=== PATIENT | male | born 1980 ===

== ENCOUNTER 2024-04-30 12:54 | Inpatient (IN) | payer MEDICAID, OTHER ==
[2024-04-30] MEDS ORDERED: ACETAMINOPHEN TAB 325 MG TAB PO PRN (13:32)
[2024-04-30] MEDS ORDERED: LORazepam 2 MG/ML INJ IM PRN (13:32)
[2024-04-30] MEDS ORDERED: MAG HYDROX/AL HYDROX/SIMETH 355 ML BOTTLE PO PRN (13:32)
[2024-04-30] MEDS ORDERED: HALOPERIDOL LACTATE 5 MG/ML 1 ML VIAL IM PRN (13:32)
[2024-04-30] MEDS ORDERED: haloperidoL 5 MG TAB PO PRN (13:32)
[2024-04-30] MEDS ORDERED: MAGNESIUM HYDROXIDE 2,400 MG/30 ML CUP PO PRN (13:32)
[2024-04-30] MEDS ORDERED: DEXTROSE 50% SYRINGE 50 ML IVP PRN ×2 (16:59)
--- NOTE | 2024-04-30 17:03 | P.MDCNMH ---
<Rios Fuentes - Last Filed: 04/30/24 18:25> History of Present Illness H&P Date: 04/30/24 History of Presenting Illness: Patient is a 43-year-old male with a past medical history of insulin-dependent d iabetes mellitus, CKD, testicular cancer, erectile dysfunction, and polysubstance abuse with methamphetamines, amphetamines, marijuana and cocaine. He is currently admitted to inpatient mental health unit after being transferred from [facility] where patient presented with suicidal and homicidal ideations. Prior to arrival to their facility patient reportedly made suicidal and homicidal statements to his PO police were dispatched to his home. Patient reports his dog bit officer and when he pulled the dog off of the officer the dog began repeatedly biting him resulting in multiple puncture wounds to bilateral hands, arms, and right leg. Patient was then transferred to [facility] where he was petitioned for suicidal and homicidal ideations and underwent treatment for his bite wounds. Patient received tetanus vaccination and was started on oral antibiotics with Augmentin. He was transferred to [facility] for inpatient psychiatric treatment. We were consulted for medical management and evaluation of bite wounds. Patient seen and fully evaluated in mental health unit. Patient sitting in chair, currently denies having any pain or complaints. Patient with numerous puncture wounds to bilateral arms, hands, and right lower extremity with b ruising surrounding bite wounds on right thigh. Patient's hands appear swollen, however patient states this is chronic and his hands have always been swollen like this and it is not a new finding from the bite wounds. Patient denies having any fevers, chills, diaphoresis, chest pain, palpitations, shortness of breath, or experiencing any numbness/tingling/weakness in his extremities. Patient admits to polysubstance abuse and smoking 1 pack of cigarettes daily. Review of systems: Pertinent positives and negatives as discussed in HPI, a complete review of systems was performed and all other systems are negative. Physical exam: Vital signs reviewed and stable. General: Nontoxic, no distress and appears stated age. Derm: Skin warm and dry, normal coloration for ethnicity. Patient with multiple bite/puncture wounds covering bilateral hands and upper extremities as well as right lower extremity with large bruise to right thigh surrounding puncture wound. Head: Atraumatic, normocephalic and symmetric. Eyes: EOM's intact, no lid lag, and anicteric sclera Mouth: no lip lesions, mucus membranes moist Cardiovascular: regular rate and rhythm with normal S1S2, no murmur, positive p osterior tibial pulses bilaterally, and cap refill < 2 seconds. Lungs: Respirations even, regular, and unlabored on room air. Lungs CTA bilaterally, no rhonchi, no rales, no wheezing, and no accessory muscle usage. Abdominal: soft, nontender to palpation, no guarding, no appreciable organomegaly Ext: ROM intact. No gross muscle atrophy, no edema, no contractures Neuro: Speech clear, face symmetrical and CN II-XII grossly intact with no noted focal neuro deficits Psych: Alert and oriented to person, place, time, and situation. Appropriate and pleasant affect. Assessment and Plan of Care: Multiple Bite wounds, puncture wounds from dog -Reviewed transfer documentation patient did receive tetanus -Continue oral antibiotics with Augmentin 875/125 mg twice daily. -Order placed for wound care clean, dry, and covered with application of bacitracin to open wounds 3 times daily. -Instructed nursing staff to monitor closely for any signs of infection including erythema, drainage, or elevated temp. If this develops, patient may need transfer to medical unit for further treatment. -Order placed for stat CBC and BMP. Insulin-dependent diabetes mellitus with hyperglycemia. -Blood glucose 356. Orders placed for patient to resume Levemir 60 units nightly and placed on glycemic protocol with NovoLog sliding scale. Polysubstance abuse with methamphetamines and cocaine -Recommend cessation of use. Nicotine dependence -Recommend smoking cessation. Nicotine patch 14 mg daily. Suicidal and homicidal ideations Bipolar disorder -Suicide precautions. -Maintain safe and supportive care. -Psychiatry team to manage. Data and imaging reviewed: As stated above in HPI. Vital signs reviewed. Blood pressure 99/60, heart rate 100, respiratory rate 20, temp 98.3 F, and SpO2 of 90% on room air. Thank you for allowing us to participate in the care of this pleasant patient. Do not hesitate to contact us with questions. Someone can be reached from the [facility] hospitalist group all hours of the day at [phone] or via perfect serve. Patient was seen independently by Nurse Practitioner. This document was prepared using [employer] ([employer]) dictation software. Please allow for er rors in log hauler while rare they do occur. Medications and Allergies Home Medications Medication Instructions Recorded Confirmed Type Amoxic-Pot Clav 875-125Mg 1 tab PO BID 04/30/24 04/30/24 History [Augmentin 875-125] Insulin Glargine [Lantus Vial] 60 unit SQ HS 04/30/24 04/30/24 History tadalafiL [Cialis] 20 mg PO DAILY PRN 04/30/24 04/30/24 History Allergies Allergy/AdvReac Type Severity Reaction Status Date / Time No Known Allergies Allergy Verified 04/30/24 13:03 Physical Exam Vitals: Intake and Output 04/30/24 04/30/24 04/30/24 06:59 14:59 22:59 Other: Weight 81.647 kg Cranial Nerve Examination - Cranial Nerves Cranial Nerve II- Optic: Intact Cranial Nerve III- Oculomotor: Intact Cranial Nerve IV- Trochlear: Intact Cranial Nerve V- Trigeminal: Intact Cranial Nerve - Abducens: Intact Cranial Nerve VII- Facial: Intact Cranial Nerve VIII- Auditory: Intact Cranial Nerve IX- Glossopharyngeal: Intact Cranial Nerve X- Vagus: Intact Cranial Nerve XI- Accessory: Intact Cranial Nerve XII- Hypoglossal: Intact Results CBC & Chem 7: 04/30/24 17:20 <Indy Tolbert - Last Filed: 05/02/24 16:48> History of Present Illness I reviewed the documentation as provided by the GHAZALA above, who is the original author of this note. I agree with the documented assessment and plan, with the following changes: none Physical Exam Vitals: Vital Signs Temp Pulse Resp BP BP Pulse Ox 05/02/24 10:20 96.3 F L 105 H 18 100/65 99 05/02/24 07:07 68 103/71 05/01/24 17:14 86 20 104/63 98 Intake and Output 05/02/24 05/02/24 05/02/24 06:59 14:59 22:59 Other: Weight 74.661 kg Results CBC & Chem 7: 04/30/24 17:20 04/30/24 17:20 Labs: Abnormal Lab Results - Last 24 Hours (Table) 05/01/24 05/01/24 05/01/24 Range/Units 10:49 17:32 20:12 POC Glucose (mg/dL) 258 H 241 H (70-110) mg/dL Hemoglobin A1c 11.9 H (<=6.0) % 05/02/24 05/02/24 05/02/24 Range/Units 06:06 06:21 07:42 POC Glucose (mg/dL) 34 L* 46 L* 148 H (70-110) mg/dL Hemoglobin A1c (<=6.0) % 05/02/24 Range/Units 12:17 POC Glucose (mg/dL) 495 H (70-110) mg/dL Hemoglobin A1c (<=6.0) %
[2024-04-30 17:23] LABS: Glucose,Whole Blood 356 mg/dL (70-110)
[2024-04-30 18:02] LABS: HCT 38.3 % (39.0-53.0); HGB 12.7 gm/dL (13.0-17.5); MCH 30.2 pg (25.0-35.0); MCHC 33.2 g/dL (31.0-37.0); MCV 91.2 fL (80.0-100.0); Mean Platelet Volume 8.6; Platelet Count 163 k/uL (150-450); RDW 12.7 % (11.5-15.5); WBC 14.4 k/uL (3.8-10.6)
[2024-04-30] MEDS: BACITRACIN OINT 1 EACH PACKET TOPICAL SCH (18:19)
[2024-04-30] MEDS: INSULIN ASPART (NovoLOG) 100 UNIT/ML VIAL SQ SCH (18:19)
[2024-04-30 18:33] LABS: African American GFR (CKD) 61 (>60 ml/min/1.73 sqM); Anion Gap 10 mmol/L; Blood Urea Nitrogen 32 mg/dL (9-20); Calcium 8.9 mg/dL (8.4-10.2); Carbon Dioxide 21 mmol/L (22-30); Chloride 104 mmol/L (98-107); Glucose 340 mg/dL (74-99); Magnesium 1.5 mg/dL (1.6-2.3); Non-African American GFR(CKD) 53 (>60 ml/min/1.73 sqM); Potassium 4.3 mmol/L (3.5-5.1); Sodium 135 mmol/L (137-145)
[2024-04-30 20:13] LABS: Glucose,Whole Blood 413 mg/dL (70-110)
[2024-04-30] MEDS: AMOXIC-POT CLAV 875-125MG 1 EACH TAB PO SCH (20:31)
[2024-04-30] MEDS: MAGNESIUM OXIDE 400 MG TAB PO STA (20:32)
[2024-04-30] MEDS: INSULIN DETEMIR (LEVEMIR) 100 UNIT/ML SYR SQ SCH (20:32)
[2024-05-01 08:59] LABS: Glucose,Whole Blood 89 mg/dL (70-110)
[2024-05-01] MEDS: NICOTINE 14MG/24HR PATCH TRANSDERM SCH (10:34)
--- NOTE | 2024-05-01 11:37 | P.HP ---
Psychiatric H&P - . History & Physical: Allergies Allergy/AdvReac Type Severity Reaction Status Date / Time No Known Allergies Allergy Verified 04/30/24 13:03 Vital Signs Temp 96.8 F L 05/01/24 09:01 Pulse 120 H 05/01/24 09:01 Resp 18 05/01/24 09:01 BP 98/74 05/01/24 09:01 Pulse Ox 97 05/01/24 09:01 FiO2 Intake & Output 04/30/24 05/01/24 05/01/24 18:59 06:59 18:59 Weight 81.647 kg 70.08 kg Laboratory Last Values WBC 14.4 k/uL (3.8-10.6) H 04/30/24 17:20 RBC 4.20 m/uL (4.30-5.90) L 04/30/24 17:20 Hgb 12.7 gm/dL (13.0-17.5) L 04/30/24 17:20 Hct 38.3 % (39.0-53.0) L 04/30/24 17:20 MCV 91.2 fL (80.0-100.0) 04/30/24 17:20 MCH 30.2 pg (25.0-35.0) 04/30/24 17:20 MCHC 33.2 g/dL (31.0-37.0) 04/30/24 17:20 RDW 12.7 % (11.5-15.5) 04/30/24 17:20 Plt Count 163 k/uL (150-450) 04/30/24 17:20 MPV 8.6 04/30/24 17:20 Sodium 135 mmol/L (137-145) L 04/30/24 17:20 Potassium 4.3 mmol/L (3.5-5.1) 04/30/24 17:20 Chloride 104 mmol/L (98-107) 04/30/24 17:20 Carbon Dioxide 21 mmol/L (22-30) L 04/30/24 17:20 Anion Gap 10 mmol/L 04/30/24 17:20 BUN 32 mg/dL (9-20) H 04/30/24 17:20 Creatinine 1.57 mg/dL (0.66-1.25) H 04/30/24 17:20 Est GFR (CKD-EPI)AfAm 61 (>60 ml/min/1.73 sqM) 04/30/24 17:20 Est GFR (CKD-EPI)NonAf 53 (>60 ml/min/1.73 sqM) 04/30/24 17:20 Glucose 340 mg/dL (74-99) H 04/30/24 17:20 POC Glucose (mg/dL) 89 mg/dL (70-110) 05/01/24 08:58 POC Glu Sash Clamp Operator ID Latonya Hooks 05/01/24 08:58 Calcium 8.9 mg/dL (8.4-10.2) 04/30/24 17:20 Magnesium 1.5 mg/dL (1.6-2.3) L 04/30/24 17:20 TSH 1.110 mIU/L (0.465-4.680) 05/01/24 09:04 IDENTIFYING DATA: Patient is a 43-year-old male who lives with his girlfriend and works side jobs HPI: states that yesterday, his girlfriend left him and drove the truck off. The police came afterwards. When the police came, his dog started biting him and he asked the police to shoot the dog and the police did so. Patient then tears up and states, "sometimes I'm just, what's the point?" States that he has been having passive suicidal ideations for many years, but he has no intent or plan to kill himself. States "I would never take myself out or anybody else out" currently denies suicidal ideations, homicidal ideations, past suicide attempts, family history of suicide attempts, "[place] guns and weapons, command hallucinations. States that his family is reason to live. Also reports a history of agitation and that he "loses my shift quick" and that Adderall has helped with this in the past. States that he uses marijuana "all day every day" since age 13. He grows his own marijuana. Also states that he uses cocaine occasionally and he last used it 2 days ago. Also has been using Adderall off the streets over the past month. Also used Klonopin off the streets 2 days ago. He used to be a heavy drinker, but has not drank alcohol in years.states that he has used almost every type of drug throughout his life.. denies any current or past auditory or visual hallucinations. Patient denies any flight of ideas racing thoughts and increased in goal directed behavior. PAST PSYCHIATRIC HISTORY: reports history of ADHD and bipolar disorder, used to be on methadone in the past, currently sees a therapist PMH:[denies] ALLERGIES: as per EMR CHEMICAL DEPENDENCY HISTORY: as per HPI FAMILY PSYCHIATRIC/SUBSTANCE USE HISTORY: alcoholism in the family, opioid use in grandfather SOCIAL HISTORY: lives with his girlfriend, works multiple side jobs MENTAL STATUS EXAM: General Appearance: Patient appears to be oolder thanstated age is alert, [directable, and attempts to cooperate]. Behavior: Patient is seated without any agitated behavior. [] Speech: Patient's speech is [fluent and nonpressured.] Mood/Affect: Patient reports their mood is [depressed], affect is congruent and constricted. appropriately tearful Suicidality/Homicidality: Patient denies having any homicidal ideation intent or plan. [Denies any suicidal ideations intent or plan] Perceptions: Patient denies any visual hallucinations [and denies any auditory hallucinations] Though content/process: [There is no evidence of any delusional thought content and thought process is linear and goal-directed.] Memory and concentration: AOX3, grossly intact for the purposes of this session. Judgment and insight: [poor] STRENGTHS/WEAKNESSES: strength is that patient is [resilient]. Weakness is that patient [has poor judgment and is impulsive] INTELLECT: [average] IMPRESSIONS: depression unspecified cannabis use disorder Cocaine use disorder Benzodiazepine use disorder PLAN: -Patient is admitted under [voluntary] status to MHU for stabilization of psychiatric symptoms and safety. -Medications : we will hold off on psychotropic medications at this time, as this presentation may be substance-induced -Ativan [and Haldol] PRN for agitation/aggression [-Patient was counselled on substance abuse and desired to cut back on use] -Internal Medicine consult to perform medical evaluation and physical. -NRT - [nicotine patch and gum -SW on board for discharge planning. Encourage patient to participate in groups to work on coping skills. []05/01/24 11:30
[2024-05-01] MEDS: IBUPROFEN 600 MG TAB PO PRN (12:54)
[2024-05-01 12:55] LABS: Glucose,Whole Blood 193 mg/dL (70-110)
[2024-05-01 14:03] LABS: Chol/HDL Ratio 2.65 Ratio; LDL Cholesterol,Calculated 45.5 mg/dL (0.0-131.0)
--- NOTE | 2024-05-01 16:48 | P.PN ---
Subjective Progress Note Date: 05/01/24 Hospital course: Patient is a 43-year-old male with a past medical history of insulin-dependent diabetes mellitus, CKD, testicular cancer, erectile dysfunction, and polysubstance abuse with methamphetamines, amphetamines, marijuana and cocaine. He is currently admitted to inpatient mental health unit after being transferred from [facility] where patient presented with suicidal and homicidal ideations. Prior to arrival to their facility patient reportedly made suicidal and homicidal statements to his PO police were dispatched to his home. Patient reports his dog bit officer and when he pulled the dog off of the officer the dog began repeatedly biting him resulting in multiple puncture wounds to bilateral hands, arms, and right leg. Patient was then transferred to [facility] where he was petitioned for suicidal and homicidal ideations and underwent treatment for his bite wounds. Patient received tetanus vaccination and was started on oral antibiotics with Augmentin. He was transferred to [facility] for inpatient psychiatric treatment. We were consulted for medical management and evaluation of bite wounds. Physical exam: Patient seen and fully evaluated at bedside for follow-up and bite wounds and hyperglycemia. Patient was resting in room went to bedside to assess with mental health RN. Swelling surrounding bite wounds significantly improved today when compared to yesterday. No active drainage or bleeding noted. Patient reports pain much better improved today as well. Patient denies having any further needs or complaints at this time. Vital signs reviewed and stable. General: Nontoxic, no distress and appears stated age. Derm: Skin warm and dry, normal coloration for ethnicity. Patient with multiple bite/puncture wounds covering bilateral hands and upper extremities as well as right lower extremity with large bruise to right thigh surrounding puncture wound. Head: Atraumatic, normocephalic and symmetric. Eyes: EOM's intact, no lid lag, and anicteric sclera Mouth: no lip lesions, mucus membranes moist Cardiovascular: regular rate and rhythm with normal S1S2, no murmur, positive posterior tibial pulses bilaterally, and cap refill < 2 seconds. Lungs: Respirations even, regular, and unlabored on room air. Lungs CTA bilaterally, no rhonchi, no rales, no wheezing, and no accessory muscle usage. Abdominal: soft, nontender to palpation, no guarding, no appreciable organomegaly Ext: ROM intact. No gross muscle atrophy, no edema, no contractures Neuro: Speech clear, face symmetrical and CN II-XII grossly intact with no noted focal neuro deficits Psych: Alert and oriented to person, place, time, and situation. Appropriate and pleasant affect. Assessment and Plan of Care: Multiple Bite wounds, puncture wounds from dog -Continue oral antibiotics with Augmentin 875/125 mg twice daily. -Continue wound care and keep clean, dry, and covered with application of bacitracin to open wounds 3 times daily. -Instructed nursing staff to monitor closely for any signs of infection including erythema, drainage, or elevated temp. If this develops, patient may need transfer to medical unit for further treatment. -Will repeat CBC tomorrow to follow-up on leukocytosis. Insulin-dependent diabetes mellitus with hyperglycemia. -Blood glucose levels much better controlled now that patient is back on long- acting and short acting insulin as he admits to not taking appropriately at home. Patient states he is on Levemir 60 units nightly which she typically takes but does not take his sliding scale because it is too much hassle. -Continue Levemir 60 units nightly along with glycemic protocol with NovoLog sliding scale. Hypomagnesemia Magnesium 1.5, patient received magnesium oxide 400 mg p.o. every 24 hours x 2 doses. Will repeat magnesium levels tomorrow morning to monitor for resolution. Elevated renal function, history of CKD -BMP showing elevated renal function with BUN of 32, creatinine of 1.57, GFR 53. Patient reports chronic kidney disease and levels appear similar when compared to transfer documents. -Will repeat BMP tomorrow morning. Polysubstance abuse with methamphetamines and cocaine -Recommend cessation of use. Nicotine dependence -Recommend smoking cessation. Nicotine patch 14 mg daily. Suicidal and homicidal ideations Bipolar disorder -Suicide precautions. -Maintain safe and supportive care. -Psychiatry team to manage. Data and imaging reviewed: Labs reviewed. CBC showing leukocytosis with WBC count of 14.4 and mild normocytic anemia with hemoglobin of 12.7. BMP showing hypocarbia with bicarb of 21 and elevated renal function with BUN of 32, creatinine of 1.57, GFR 53. Patient reports chronic kidney disease and levels appear similar to transfer document. Magnesium 1.5. Vital signs reviewed. Blood pressure 104/63, heart rate 86, respiratory rate 16, and SpO2 of 98% on room air. Thank you for allowing us to participate in the care of this pleasant patient. Do not hesitate to contact us with questions. Someone can be reached from the [facility] hospitalist group all hours of the day at [phone] or via perfect serve. Patient was seen independently by Nurse Practitioner. This document was prepared using [employer] dictation software. Please allow for errors in bonded structures repairer while rare they do occur. I reviewed the documentation as provided by the GHAZALA above, who is the original author of this note. I agree with the documented assessment and plan, with the following changes: none Objective - Vital Signs Vital signs: Vital Signs Temp 96.8 F L 05/01/24 09:01 Pulse 120 H 05/01/24 09:01 Resp 18 05/01/24 09:01 BP 98/74 05/01/24 09:01 Pulse Ox 97 05/01/24 09:01 FiO2 Intake & Output 04/30/24 05/01/24 05/01/24 18:59 06:59 18:59 Weight 81.647 kg 70.08 kg - Labs CBC & Chem 7: 04/30/24 17:20 04/30/24 17:20 Labs: Abnormal Lab Results - Last 24 Hours (Table) 04/30/24 04/30/24 04/30/24 Range/Units 17:17 17:20 17:20 WBC 14.4 H (3.8-10.6) k/uL RBC 4.20 L (4.30-5.90) m/uL Hgb 12.7 L (13.0-17.5) gm/dL Hct 38.3 L (39.0-53.0) % Sodium 135 L (137-145) mmol/L Carbon Dioxide 21 L (22-30) mmol/L BUN 32 H (9-20) mg/dL Creatinine 1.57 H (0.66-1.25) mg/dL Glucose 340 H (74-99) mg/dL POC Glucose (mg/dL) 356 H (70-110) mg/dL Magnesium 1.5 L (1.6-2.3) mg/dL 04/30/24 05/01/24 Range/Units 20:12 12:52 WBC (3.8-10.6) k/uL RBC (4.30-5.90) m/uL Hgb (13.0-17.5) gm/dL Hct (39.0-53.0) % Sodium (137-145) mmol/L Carbon Dioxide (22-30) mmol/L BUN (9-20) mg/dL Creatinine (0.66-1.25) mg/dL Glucose (74-99) mg/dL POC Glucose (mg/dL) 413 H 193 H (70-110) mg/dL Magnesium (1.6-2.3) mg/dL
[2024-05-01 17:33] LABS: Glucose,Whole Blood 258 mg/dL (70-110)
[2024-05-01] MEDS: MAGNESIUM OXIDE 400 MG TAB PO STA (17:56)
[2024-05-01] MEDS: NICOTINE GUM (POLACRILEX) 2 MG GUM BUCCAL PRN (20:05)
[2024-05-01 20:13] LABS: Glucose,Whole Blood 241 mg/dL (70-110)
[2024-05-01] MEDS: LORazepam 1 MG TAB PO PRN (22:14)
[2024-05-02 06:08] LABS: Glucose,Whole Blood 34 mg/dL (70-110)
[2024-05-02 06:27] LABS: Glucose,Whole Blood 46 mg/dL (70-110)
[2024-05-02 06:47] LABS: Glucose,Whole Blood 71 mg/dL (70-110)
[2024-05-02 07:48] LABS: Glucose,Whole Blood 148 mg/dL (70-110)
--- NOTE | 2024-05-02 10:15 | P.PN ---
Progress Note - Text Interval history: Patient was seen [wandering the hallways] and was directable and agreeable to speak with radio news writer. []. At this time patient denies any suicidal or homicidal ideations intent or plan. Denies any Auditory or visual hallucinations. Mental status exam: General Appearance: [Patient appears to be older thanstated age is alert, directable, and cooperative.] Behavior: [No agitated behavior. Patient is calm and directable] Speech: Patient's speech is fluent and nonpressured. Mood/Affect: Mood is improving mildly, affect is congruent and constricted. Suicidality/Homicidality: Patient denies having any suicidal or homicidal ideation intent or plan. Perceptions: Patient denies any auditory or visual hallucinations. Though content/process: [There is no evidence of any delusional thought content and thought process is linear and goal-directed.] Memory and concentration: AOX3, grossly intact for the purposes of this session Judgment and insight: improving mildly Assessment/Plan: Continue with current diagnosis. Patient continues to meet criteria for inpatient psychiatric admission for symptom stabilization and safety.[Patient will be maintained on current psychotropic medication regimen.] Monitor for medication compliance and for any psychotropic medication side effects. Will continue to monitor ongoing response to treatment. Encouraged participation in milieu.
[2024-05-02 10:21] VITALS: RESP 18; TEMP 96.3
[2024-05-02 12:19] LABS: Glucose,Whole Blood 495 mg/dL (70-110)
[2024-05-02] MEDS: INSULIN ASPART (NovoLOG) 100 UNIT/ML VIAL SQ ONE (12:37)
[2024-05-02 17:44] LABS: Glucose,Whole Blood 135 mg/dL (70-110)
[2024-05-02 20:10] LABS: Glucose,Whole Blood 273 mg/dL (70-110)
[2024-05-02] MEDS: INSULIN DETEMIR (LEVEMIR) 100 UNIT/ML SYR SQ SCH (20:40)
[2024-05-03 07:01] VITALS: BP 126/80; PULSE 83
[2024-05-03 08:06] LABS: Glucose,Whole Blood 158 mg/dL (70-110)
[2024-05-03 09:58] LABS: HCT 37.3 % (39.0-53.0); MCH 31.1 pg (25.0-35.0); MCHC 34.8 g/dL (31.0-37.0); MCV 89.3 fL (80.0-100.0); Mean Platelet Volume 9.2; Platelet Count 173 k/uL (150-450); RBC 4.18 m/uL (4.30-5.90); WBC 14.2 k/uL (3.8-10.6)
[2024-05-03 10:32] LABS: African American GFR (CKD) 67 (>60 ml/min/1.73 sqM); Anion Gap 7 mmol/L; Blood Urea Nitrogen 40 mg/dL (9-20); Calcium 9.5 mg/dL (8.4-10.2); Carbon Dioxide 25 mmol/L (22-30); Chloride 107 mmol/L (98-107); Glucose 209 mg/dL (74-99); Magnesium 1.8 mg/dL (1.6-2.3); Non-African American GFR(CKD) 58 (>60 ml/min/1.73 sqM); Potassium 4.8 mmol/L (3.5-5.1); Sodium 139 mmol/L (137-145)
[2024-05-03 12:56] LABS: Glucose,Whole Blood 503 mg/dL (70-110)
[2024-05-03] MEDS: INSULIN ASPART (NovoLOG) 100 UNIT/ML VIAL SQ ONE (14:42)
--- NOTE | 2024-05-03 15:16 | P.DS ---
Providers Date of admission: 04/30/24 15:55 Expected date of discharge: 05/03/24 Attending physician: Bethany Nix MD Consults: 04/30/24 13:32 Consult Physician Routine Consulting Provider: Ben Physician Consult Reason/Comments: H&P and medical Do you want consulting provider notified?: Yes Primary care physician: Stated None - Discharge Diagnosis(es) (1) Depression, unspecified Current Visit: Yes Status: Acute Priority: High (2) Cocaine use disorder Current Visit: Yes Status: Acute Priority: High (3) Benzodiazepine abuse Current Visit: Yes Status: Acute Priority: High (4) Cannabis use disorder Current Visit: Yes Status: Acute Priority: Low (5) Nicotine dependence Current Visit: Yes Status: Acute Priority: Low Hospital Course: Admission HPI: Admission note was completed by Dr. Jordan "states that yesterday, his girlfriend left him and drove the truck off. The police came afterwards. When the police came, his dog started biting him and he asked the police to shoot the dog and the police did so. Patient then tears up and states, "sometimes I'm just, what's the point?" States that he has been having passive suicidal ideations for many years, but he has no intent or plan to kill himself. States "I would never take myself out or anybody else out" currently denies suicidal ideations, homicidal ideations, past suicide attempts, family history of suicide attempts, "[employer] guns and weapons, command hallucinations. States that his family is reason to live. Also reports a history of agitation and that he "loses my shift quick" and that Adderall has helped with this in the past. States that he uses marijuana "all day every day" since age 13. He grows his own marijuana. Also states that he uses cocaine occasionally and he last used it 2 days ago. Also has been using Adderall off the streets over the past month. Also used Klonopin off the streets 2 days ago. He used to be a heavy drinker, but has not drank alcohol in years.states that he has used almost every type of drug throughout his life.." Hospital course: Upon admission to the unit patient was directable and agreeable to commence treatment and signed adult voluntary form. Patient got along well with other patients on the unit and followed unit protocol. Patient was not started on any psychotropic medications as his presentation appeared to be primarily substance- induced. Patient was observed over the weekend for several days with noted improvements in his cognition and safety concerns. Patient spoke of his stressors and engaged in therapy both group and individual. Patient has an OWI and will be following drug court with random drug test. Patient also notably sees a counselor regularly at [facility] with an appointment set up tomorrow that was confirmed by staff. Patient was also seen by medical team for history and physical exam. He was started on Keflex and bacitracin for bite wounds related to his dog. Throughout the course of the hospitalization patient gradually improved with regards to mood, anxiety, sleep and returned back to their baseline level of functioning became more future oriented with improved insight and judgment. On the day of discharge patient denied any suicidal or homicidal ideations intent or plan denied any auditory or visual hallucinations. The patient denied any access to guns or weapons. Patient denied any paranoia and did not endorse any delusions. Patient does have a significant history of substance abuse and was counseled on abstaining from all substances including alcohol and marijuana. Patient was offered however declined inpatient substance-abuse rehab. Patient states given his OWI he will follow up with drug court and receive random drug tests that would prevent him from using substances. Patient was also counseled on need for regular compliance and was encouraged to follow-up with their outpatient appointment for mental health and also for primary care. Prior to discharge a family meeting will be arranged by psychiatric social worker to answer any questions and ensure safety upon discharge incuding making sure that guns/weapons are either removed from the home or locked away. Patient to return home with mother with firearms confirmed to be removed from the home from patient's niece who will be picking patient up. Mental status exam: General Appearance: Patient appears to be stated age is alert, pleasant, and cooperative. Patient is in no acute distress and has improved hygiene and grooming Behavior: Patient is calmly seated without any agitated behavior. Speech: Patient's speech is fluent and nonpressured. Mood/Affect: Patient reports their mood is "better", affect is congruent and eu thymic. Suicidality/Homicidality: Patient denies having any suicidal or homicidal ideation intent or plan. Perceptions: Patient denies any auditory or visual hallucinations. Though content/process: There is no evidence of any delusional thought content and thought process is linear and goal-directed. More future oriented Memory and concentration: AOX3, grossly intact for the purposes of this session. Can spell "WORLD" backwards correctly. Judgment and insight: Chronically poor, however has improved with guarded prognosis Impression: Depression, unspecified, likely substance-induced Cannabis use disorder Cocaine use disorder Benzodiazepine abuse Nicotine dependence Plan: -Continue with discharge today as patient has improved and stabilized psychiatrically and is not currently an imminent threat to themself and/or others. -Continue medications: There were no medications started as patient's presentation was primarily substance-induced that resolved once the substances were removed -Patient was counseled on the need for medication compliance and appropriate follow-up at mental health and also primary care for medical issues. Patient verbalized understanding and agreed. -Social work to help coordinate patients discharge today arrange for and conduct family meeting to ensure safety upon discharge and answer any questions/concerns. also to ensure safe home environment that guns/weapons are either removed from the home or locked away. Social work also to arrange for patients follow up appointments with [facility] for psychiatric care along with follow up with primary care provider. -Patient counseled on abstaining from recreational drugs and marijuana and alcohol. Was informed/educated on the adverse effects on their physical and mental health. Patient verbally agreed and understood. Patient was offered substance abuse treatment however declined at this time. -Patient was instructed to return to the hospital or seek immediate medical care if their psychiatric or medical symptoms do worsen or reoccur. Abnormal Labs 04/30/24 04/30/24 04/30/24 17:17 17:20 17:20 WBC 14.4 H RBC 4.20 L Hgb 12.7 L Hct 38.3 L Sodium 135 L Carbon Dioxide 21 L BUN 32 H Creatinine 1.57 H Glucose 340 H POC Glucose (mg/dL) 356 H Hemoglobin A1c Magnesium 1.5 L 04/30/24 05/01/24 05/01/24 20:12 10:49 12:52 WBC RBC Hgb Hct Sodium Carbon Dioxide BUN Creatinine Glucose POC Glucose (mg/dL) 413 H 193 H Hemoglobin A1c 11.9 H Magnesium 05/01/24 05/01/24 05/02/24 17:32 20:12 06:06 WBC RBC Hgb Hct Sodium Carbon Dioxide BUN Creatinine Glucose POC Glucose (mg/dL) 258 H 241 H 34 L* Hemoglobin A1c Magnesium 05/02/24 05/02/24 05/02/24 06:21 07:42 12:17 WBC RBC Hgb Hct Sodium Carbon Dioxide BUN Creatinine Glucose POC Glucose (mg/dL) 46 L* 148 H 495 H Hemoglobin A1c Magnesium 05/02/24 05/02/24 05/03/24 17:37 20:09 08:03 WBC RBC Hgb Hct Sodium Carbon Dioxide BUN Creatinine Glucose POC Glucose (mg/dL) 135 H 273 H 158 H Hemoglobin A1c Magnesium 05/03/24 05/03/24 05/03/24 09:03 09:15 12:53 WBC 14.2 H RBC 4.18 L Hgb Hct 37.3 L Sodium Carbon Dioxide BUN 40 H Creatinine 1.45 H Glucose 209 H POC Glucose (mg/dL) 503 H* Hemoglobin A1c Magnesium Vital Signs Temp 96.3 F L 05/02/24 10:20 Pulse 83 05/03/24 07:01 Resp 18 05/02/24 10:20 BP 126/80 05/03/24 07:01 Pulse Ox 99 05/02/24 10:20 FiO2 Intake & Output 05/02/24 05/03/24 05/03/24 18:59 06:59 18:59 Weight 74.661 kg Allergies Allergy/AdvReac Type Severity Reaction Status Date / Time No Known Allergies Allergy Verified 04/30/24 13:03 Patient Condition at Discharge: Stable Plan - Discharge Summary Discharge Rx Participant: No New Discharge Prescriptions: New Bacitracin Zinc Oint 1 applic TOPICAL DAILY #28 gm Nicotine 14Mg/24Hr Patch [Habitrol] 1 patch TRANSDERM DAILY 30 Days #30 patch INSULIN ASPART (NovoLOG) [NovoLOG (formulary)] 0 unit SQ ACHS each Continue Insulin Glargine [Lantus Vial] 60 unit SQ HS tadalafiL [Cialis] 20 mg PO DAILY PRN PRN Reason: Erectile Dysfunction Amoxic-Pot Clav 875-125Mg [Augmentin 875-125] 1 tab PO BID 3 Days #6 tab Discharge Medication List Insulin Glargine [Lantus Vial] 60 unit SQ HS 04/30/24 [History] tadalafiL [Cialis] 20 mg PO DAILY PRN 04/30/24 [History] Amoxic-Pot Clav 875-125Mg [Augmentin 875-125] 1 tab PO BID 3 Days #6 tab 05/03/24 [Rx] Bacitracin Zinc Oint 1 applic TOPICAL DAILY #28 gm 05/03/24 [Rx] INSULIN ASPART (NovoLOG) [NovoLOG (formulary)] 0 unit SQ ACHS each 05/03/24 [Rx] Nicotine 14Mg/24Hr Patch [Habitrol] 1 patch TRANSDERM DAILY 30 Days #30 patch 05/03/24 [Rx] Follow up Appointment(s)/Referral(s): [facility] [Other] - 1 Week (Sports Physicals Sick Visits Minor Injuries Located across from the emergency entrance of the hospital. No appointment necessary.) Psychological, [facility] [Other] - 05/04/24 9:30 am (05/04 @ 09:30 with Dhaval Lilly [facility]) Patient Instructions/Handouts: Depression (DC) Activity/Diet/Wound Care/Special Instructions: Avoid the use of street drugs and alcohol. Take all medications as prescribed. When you are in need of refills on your medications, please contact your medical provider and/or outpatient psychiatrist/provider to have this done. Please go to your scheduled outpatient appointment for aftercare treatment. If symptoms return or become worse, call the crisis line at and/or go to the nearest emergency room for evaluation. National Suicide Hotline 984 Discharge Disposition: HOME SELF-CARE
== END 2024-05-03 15:50 | disposition home or self-care (01) | DRG 754 ==
LOC: 3MHU 15:55
PROVIDERS: ADMIT Psychiatry & Neurology Psychiatry; ATTEND Psychiatry & Neurology Psychiatry
DX: F32.A Depression, unspecified (principal); E11.9 Type 2 diabetes mellitus without complications; F12.90 Cannabis use, unspecified, uncomplicated; F13.10 Sedative, hypnotic or anxiolytic abuse, uncomplicated; F14.90 Cocaine use, unspecified, uncomplicated; F17.210 Nicotine dependence, cigarettes, uncomplicated; F31.9 Bipolar disorder, unspecified; F41.9 Anxiety disorder, unspecified; R45.850 Homicidal ideations; R45.851 Suicidal ideations; S61.451A Open bite of right hand, initial encounter; S61.452A Open bite of left hand, initial encounter; W54.0XXA Bitten by dog, initial encounter; Z23 Encounter for immunization; Z79.4 Long term (current) use of insulin; Z79.899 Other long term (current) drug therapy; Z85.47 Personal history of malignant neoplasm of testis
CPT/HCPCS: 80048; 80061; 83036; 83735; 84443; 85027